=== PATIENT | male | born 1975 | race African-American/Black ===

== ENCOUNTER 2019-04-13 19:49 | Observation (INO) | payer BC ==
[2019-04-13 20:19] LABS: Absolute Lymphocytes (CBC) 2.7 K/uL (0.7-4.9); Absolute Monocytes 0.7 K/uL (0.1-1.3); Absolute Neutrophil 4.2 K/uL (1.8-8.0); Basophils % 1.1 % (0-1.3); Hematocrit 44.7 % (39.6-49.0); Lymphocytes % 34.2 % (15.3-44.8); MPV 8.9 fL (7.6-11.3); Monocytes % 8.7 % (3.3-12.3); Protime INR 1.03; RBC Red Blood Cell Count 4.84 M/uL (4.33-5.43)
[2019-04-13] MEDS ORDERED: METOPROLOL TARTRATE 5 MG/5 ML INJ IV ONE ×2 (20:27→20:47)
[2019-04-13] MEDS ORDERED: NA CHLORIDE 0.9% 1,000 ML ONE (20:27)
[2019-04-13] MEDS ORDERED: ASPIRIN 81 MG CHEWABLE TABLET ONE (20:27)
[2019-04-13 20:36] LABS: ALT/SGPT 28 U/L (12-78); AST/SGOT 21 U/L (15-37); Albumin 3.9 g/dL (3.4-5.0); Alkaline Phosphatase 92 U/L (45-117); BUN Blood Urea Nitrogen 14 mg/dL (7-18); Bicarbonate 26 mmol/L (21-32); Bilirubin Direct 0.1 mg/dL (0-0.2); Bilirubin Total 0.4 mg/dL (0.2-1.0); Glucose Level 112 mg/dL (74-106); Magnesium 2.2 mg/dL (1.8-2.4); NT PRO-BNP 21 pg/mL (<125); Potassium 3.4 mmol/L (3.5-5.1); Sodium Level 140 mmol/L (136-145); Troponin (Emerg Dept Use Only) < 0.02 ng/mL (0.0-0.045)
--- NOTE | 2019-04-13 21:02 | RAD REPORT ---
EXAM DESCRIPTION: RAD - Chest Single View - 04/13/2019 8:34 pm CLINICAL HISTORY: Chest pain COMPARISON: None. TECHNIQUE: AP portable chest image was obtained 2024 . FINDINGS: Lungs are clear. Heart and vasculature are normal. No measurable pleural effusion and no p neumothorax. No acute bony abnormality seen. No acute aortic findings suspected. IMPRESSION: No acute cardiopulmonary process.
[2019-04-13] MEDS ORDERED: POTASSIUM 25 MEQ EFFERV TAB ONE (21:09)
--- NOTE | 2019-04-13 21:10 | ER ---
Nurse's Notes [facility] Name: Monica Larkin Age: 43 yrs Sex: Male : 1975 Arrival Date: 04/13/2019 Time: 19:50 Bed 20 Private MD: Diagnosis: Chest pain, unspecified Presentation: 04/13 19:59 Presenting complaint: Patient states: I was in the car driving to work and got a sharp la1 stabbing 10/10 pain that radiates to my back, I got sweaty and then the pain changed to a pressure like pain and is still there. My left arm is also kind of numb and painful. Transition of care: patient was not received from another setting of care. Onset of symptoms was April 13, 2019. Risk Assessment: Do you want to hurt yourself or someone else? Patient reports no desire to harm self or others. Initial Sepsis Screen: Does the patient meet any 2 criteria? No. Patient's initial sepsis screen is negative. Does the patient have a suspected source of infection? No. Patient's initial sepsis screen is negative. Care prior to arrival: None. 19:59 Method Of Arrival: Ambulatory la1 19:59 Acuity: RUDI 2 la1 Triage Assessment: 19:56 General: Appears in no apparent distress. uncomfortable, Behavior is calm, cooperative, cc3 appropriate for age. Pain: Complains of pain in chest Pain currently is 7 out of 10 on a pain scale. Quality of pain is described as aching, Pain began suddenly. EENT: No signs and/or symptoms were reported regarding the EENT system. Neuro: Level of Consciousness is awake, alert, obeys commands, Oriented to person, place, time, situation, Appropriate for age. Cardiovascular: Reports chest pain, Patient's skin is warm and dry. Respiratory: Airway is patent Respiratory effort is even, unlabored, Respiratory pattern is regular, symmetrical. GI: Abdomen is round non-distended. : No signs and/or symptoms were reported regarding the genitourinary system. Derm: No signs and/or symptoms reported regarding the dermatologic system. Musculoskeletal: Circulation, motion, and sensation intact. Range of motion: intact in all extremities. Historical: - Allergies: 19:58 PENICILLINS; la1 19:58 SHELLFISH; la1 - PMHx: 19:58 None; la1 - Immunization history:: Adult Immunizations up to date. - Social history:: Smoking status: Patient/guardian denies using tobacco. - Ebola Screening: : No symptoms or risks identified at this time. Screenin:56 Abuse screen: Denies threats or abuse. Denies injuries from another. Nutritional cc3 screening: No deficits noted. Tuberculosis screening: No symptoms or risk factors identified. Fall Risk Ambulatory Aid- None/Bed Rest/Nurse Assist (0 pts). Gait- Normal/Bed Rest/Wheelchair (0 pts) Mental Status- Oriented to own ability (0 pts). Assessment: 19:56 Pain: Pain radiates to back. cc3 20:45 Reassessment: Patient appears in no apparent distress at this time. Patient and/or cc3 family updated on plan of care and expected duration. Pain level reassessed. Patient is alert, oriented x 3, equal unlabored respirations, skin warm/dry/pink. BP of 138/88 mmHg and heart rate of 81 bpm with NRS of 2/10 relayed to ADWOA Marsh and she said no need for the third dose of Metoprolol. Patient states feeling better. Patient states symptoms have improved. 21:30 Reassessment: Patient appears in no apparent distress at this time. Patient and/or cc3 family updated on plan of care and expected duration. Pain level reassessed. Patient is alert, oriented x 3, equal unlabored respirations, skin warm/dry/pink. 22:45 Reassessment: Patient appears in no apparent distress at this time. Patient and/or cc3 family updated on plan of care and expected duration. Pain level reassessed. Patient is alert, oriented x 3, equal unlabored respirations, skin warm/dry/pink. Patient is for admission, room available in 406, report called and handed over to NITZA Cox for continuity of care and management. Patient denies pain at this time. Patient states feeling better. Patient states symptoms have improved. 23:00 Reassessment: Patient appears in no apparent distress at this time. Patient and/or cc3 family updated on plan of care and expected duration. Pain level reassessed. Patient is alert, oriented x 3, equal unlabored respirations, skin warm/dry/pink. Patient left ER for admission vitally stable by wheelchair escorted by information technology account managerrachelle Jarquin. Patient denies pain at this time. Patient states feeling better. Patient states symptoms have improved. Vital Signs: 19:58 BP 170 / 105; Pulse 111; Resp 16; Temp 97.3; Pulse Ox 98% on R/A; Weight 86.18 kg; la1 Height 5 ft. 5 in. (165.10 cm); Pain 4/10; 20:15 BP 152 / 91; Pulse 95; Resp 16 S; Temp 97.5(O); Pulse Ox 99% on R/A; cc3 20:25 BP 149 / 97; Pulse 83; Resp 16 S; Temp 97.5(O); Pulse Ox 98% on R/A; Pain 2/10; cc3 20:30 BP 148 / 103; Pulse 83; Resp 16 S; Temp 97.3(O); Pulse Ox 100% on R/A; cc3 20:45 BP 138 / 88; Pulse 81; Resp 16 S; Temp 97.3(O); Pulse Ox 99% on R/A; Pain 2/10; cc3 21:45 BP 140 / 96; Pulse 80; Resp 17 S; Temp 97.3(O); Pulse Ox 100% on R/A; cc3 22:00 BP 128 / 84; Pulse 80; Resp 16 S; Temp 97.5(O); Pulse Ox 99% on R/A; cc3 22:30 BP 134 / 82; Pulse 80; Resp 18 S; Temp 97.3(O); Pulse Ox 99% on R/A; cc3 19:58 Body Mass Index 31.62 (86.18 kg, 165.10 cm) la1 ED Course: 19:50 Patient arrived in ED. am2 19:54 Salma Carnes FNP-C is [facility]. snw 19:54 Edgardo Farah MD is Attending Physician. snw 19:56 Cassia Noriega is Primary Nurse. cc3 19:56 Patient has correct armband on for positive identification. Placed in gown. Bed in low cc3 position. Call light in reach. Side rails up X 1. youth nutritional monitor on. Pulse ox on. NIBP on. 19:56 Patient maintains SpO2 saturation greater than 95% on room air. cc3 19:59 Arm band placed on left wrist. EKG completed in triage. Results shown to . la1 20:00 Triage completed. la1 20:00 Inserted saline lock: 20 gauge in right antecubital area, using aseptic technique. cc3 Blood collected. 20:36 XRAY Chest (1 view) In Process Unspecified. EDMS 21:08 Mark Sanchez MD is Hospitalizing Provider. snw 22:50 No provider procedures requiring assistance completed. Patient admitted, IV remains in cc3 place. Administered Medications: 20:15 Drug: Aspirin Chewable Tablet 324 mg Route: PO; cc3 20:30 Follow up: Response: No adverse reaction; Pain is decreased cc3 20:15 Drug: NS 0.9% 1000 ml Route: IV; Rate: 75 ml/hr; Site: right antecubital; cc3 22:15 Follow up: Response: No adverse reaction; IV Status: Infusion continued upon admission; cc3 IV Intake: 150ml 20:20 Drug: Metoprolol 5 mg Route: IVP; Site: right antecubital; cc3 20:30 Follow up: Response: No adverse reaction; Pain is decreased; Blood pressure is lowered cc3 20:35 Drug: Metoprolol 5 mg Route: IVP; Site: right antecubital; cc3 20:45 Follow up: Response: No adverse reaction; Pain is decreased; Blood pressure is lowered cc3 20:55 Drug: Potassium Effervescent Tablet 50 mEq Route: PO; cc3 21:00 Follow up: Response: No adverse reaction cc3 21:10 Drug: Metoprolol 25 mg Route: PO; cc3 22:00 Follow up: Response: No adverse reaction; Blood pressure is lowered cc3 21:11 Drug: Lovenox 80 mg Route: Sub-Q; Site: right lower abdomen; cc3 21:30 Follow up: Response: No adverse reaction cc3 Intake: 22:15 IV: 150ml; Total: 150ml. cc3 Outcome: 21:10 Decision to Hospitalize by Provider. snw 22:50 Admitted to Tele accompanied by tech, via wheelchair, room 406, with chart, Report cc3 called to NITZA Cox 22:50 Condition: stable 22:50 Instructed on the need for admit, Demonstrated understanding of instructions. 23:02 Patient left the ED. cc3 Signatures: Dispatcher [employer] EDNE Salma Carnes, TERRA COTTA ROOFER HELPER-C TERRA COTTA ROOFER HELPER-Csnw Alonso Sher RN RN la1 Riana Martinez am2 Cassia Noriega cc3 Corrections: (The following items were deleted from the chart) 20:37 20:25 BP 149 / 97; Pulse 83bpm; Resp 16bpm; Spontaneous; Pulse Ox 98% RA; cc3 cc3 22:48 19:56 Pain: Pain does not radiate. cc3 cc3 23:14 20:25 BP 149 / 97; Pulse 83bpm; Resp 16bpm; Spontaneous; Pulse Ox 98% RA; Pain 2/10; cc3cc3 23:14 20:30 BP 148 / 103; Pulse 83bpm; Resp 16bpm; Spontaneous; Pulse Ox 100% RA; cc3 cc3 23:14 20:45 BP 138 / 88; Pulse 81bpm; Resp 16bpm; Spontaneous; Pulse Ox 99% RA; Pain 2/10; cc3cc3
--- NOTE | 2019-04-13 21:11 | EDPHYS ---
Physician Documentation [facility] Name: Monica Larkin Age: 43 yrs Sex: Male : 1975 Arrival Date: 04/13/2019 Time: 19:50 Bed 20 Private MD: ED Physician Edgardo Farah HPI: 04/13 20:44 This 43 yrs old Black Male presents to ER via Ambulatory with complaints of Chest Pain. snw 20:44 The patient or guardian reports chest pain that is located primarily in the substernal snw area. Onset: suddenly, just prior to arrival, today, and improved in ED. The pain radiates to the left arm. Associated signs and symptoms: Pertinent positives: diaphoresis. The chest pain is described as a pressure, sharp. Duration: The patient or guardian reports a single episode, that is still ongoing, but improving. Severity of pain: At its worst the pain was moderate severe in the emergency department the pain has improved mildly. The patient has not experienced similar symptoms in the past. The patient has not recently seen a physician. Historical: - Allergies: 19:58 PENICILLINS; la1 19:58 SHELLFISH; la1 - PMHx: 19:58 None; la1 - Immunization history:: Adult Immunizations up to date. - Social history:: Smoking status: Patient/guardian denies using tobacco. - Ebola Screening: : No symptoms or risks identified at this time. ROS: 20:42 Constitutional: Negative for fever, chills, and weight loss, Eyes: Negative for injury, snw pain, redness, and discharge, ENT: Negative for injury, pain, and discharge, Neck: Negative for injury, pain, and swelling, Respiratory: Negative for shortness of breath, cough, wheezing, and pleuritic chest pain, Abdomen/GI: Negative for abdominal pain, nausea, vomiting, diarrhea, and constipation, Back: Negative for injury and pain, : Negative for injury, bleeding, discharge, and swelling, MS/Extremity: Negative for injury and deformity, Neuro: Negative for headache, weakness, numbness, tingling, and seizure. 20:42 Cardiovascular: Positive for chest pain, of the chest. 20:42 Skin: Positive for diaphoresis. Exam: 20:04 Head/Face: Normocephalic, atraumatic. Eyes: Pupils equal round and reactive to light, snw extra-ocular motions intact. Lids and lashes normal. Conjunctiva and sclera are non-icteric and not injected. Cornea within normal limits. Periorbital areas with no swelling, redness, or edema. ENT: Nares patent. No nasal discharge, no septal abnormalities noted. Tympanic membranes are normal and external auditory canals are clear. Oropharynx with no redness, swelling, or masses, exudates, or evidence of obstruction, uvula midline. Mucous membranes moist. Neck: Trachea midline, no thyromegaly or masses palpated, and no cervical lymphadenopathy. Supple, full range of motion without nuchal rigidity, or vertebral point tenderness. No Meningismus. Chest/axilla: Normal chest wall appearance and motion. Nontender with no deformity. No lesions are appreciated. 20:04 Respiratory: Lungs have equal breath sounds bilaterally, clear to auscultation and percussion. No rales, rhonchi or wheezes noted. No increased work of breathing, no retractions or nasal flaring. Abdomen/GI: Soft, non-tender, with normal bowel sounds. No distension or tympany. No guarding or rebound. No evidence of tenderness throughout. Back: No spinal tenderness. No costovertebral tenderness. Full range of motion. MS/ Extremity: Pulses equal, no cyanosis. Neurovascular intact. Full, normal range of motion. Neuro: Awake and alert, GCS 15, oriented to person, place, time, and situation. Cranial nerves II-XII grossly intact. Motor strength 5/5 in all extremities. Sensory grossly intact. Cerebellar exam normal. Normal gait. Psych: Awake, alert, with orientation to person, place and time. Behavior, mood, and affect are within normal limits. 20:04 Constitutional: The patient appears alert, anxious, diaphoretic, uncomfortable. 20:04 Cardiovascular: Rate: tachycardic, Pulses: no pulse deficits are appreciated, Heart sounds: normal, Edema: is not appreciated, JVD: is not appreciated. 20:04 Skin: Appearance: Moisture: damp. Vital Signs: 19:58 BP 170 / 105; Pulse 111; Resp 16; Temp 97.3; Pulse Ox 98% on R/A; Weight 86.18 kg; la1 Height 5 ft. 5 in. (165.10 cm); Pain 4/10; 20:15 BP 152 / 91; Pulse 95; Resp 16 S; Temp 97.5(O); Pulse Ox 99% on R/A; cc3 20:25 BP 149 / 97; Pulse 83; Resp 16 S; Temp 97.5(O); Pulse Ox 98% on R/A; Pain 2/10; cc3 20:30 BP 148 / 103; Pulse 83; Resp 16 S; Temp 97.3(O); Pulse Ox 100% on R/A; cc3 20:45 BP 138 / 88; Pulse 81; Resp 16 S; Temp 97.3(O); Pulse Ox 99% on R/A; Pain 2/10; cc3 21:45 BP 140 / 96; Pulse 80; Resp 17 S; Temp 97.3(O); Pulse Ox 100% on R/A; cc3 22:00 BP 128 / 84; Pulse 80; Resp 16 S; Temp 97.5(O); Pulse Ox 99% on R/A; cc3 22:30 BP 134 / 82; Pulse 80; Resp 18 S; Temp 97.3(O); Pulse Ox 99% on R/A; cc3 19:58 Body Mass Index 31.62 (86.18 kg, 165.10 cm) la1 MDM: 19:55 Patient medically screened. snw 19:58 ANDRES Risk Score: 1 - Recent [<24hrs] Severe Angina, TOTAL SCORE = 1. Counseling: I had snw a detailed discussion with the patient and/or guardian regarding: the historical points, exam findings, and any diagnostic results supporting the discharge/admit diagnosis, the presence of at least one elevated blood pressure reading (>120/80) during this emergency department visit, lab results, radiology results, the need for further work-up and treatment in the hospital. Physician consultation: Mark Sanchez MD was called at 21:12, was contacted at 21:12, regarding admission, to the telemetry unit. 21:10 ECG:. The patient was given aspirin in the Emergency Department. Data reviewed: vital snw signs, nurses notes, lab test result(s), EKG, radiologic studies. 22:58 ED course: Heart score = History highly suspicious, EKG with ST depression in inferior snw leads, = 4. 05/26 19:59 Order name: Basic Metabolic Panel; Complete Time: 20:48 w 04/13 19:59 Order name: CBC with Diff; Complete Time: 20:34 w 04/13 19:59 Order name: LFT's; Complete Time: 20:48 04/13 19:59 Order name: Magnesium; Complete Time: 20:48 04/13 19:59 Order name: NT PRO-BNP; Complete Time: 20:48 04/13 19:59 Order name: PT-INR; Complete Time: 20:34 04/13 19:59 Order name: Troponin (emerg Dept Use Only); Complete Time: 20:48 w 04/13 19:59 Order name: XRAY Chest (1 view); Complete Time: 21:13 04/13 21:49 Order name: Echo with Doppler [facility] 04/13 21:49 Order name: Lipid Profile [facility] 04/13 21:49 Order name: Lipid Profile [facility] 04/13 21:49 Order name: Troponin I [facility] 04/13 21:49 Order name: Troponin I [facility] 04/13 19:59 Order name: EKG; Complete Time: 20:00 04/13 19:59 Order name: Cardiac monitoring; Complete Time: 20:22 04/13 19:59 Order name: EKG - Nurse/Tech; Complete Time: 20:00 04/13 19:59 Order name: IV Saline Lock; Complete Time: 20:22 04/13 19:59 Order name: Labs collected and sent; Complete Time: 20:22 04/13 19:59 Order name: O2 Per Protocol; Complete Time: 20:22 04/13 19:59 Order name: O2 Sat Monitoring; Complete Time: 20:22 04/13 21:49 Order name: Heart Healthy [facility] 04/13 21:49 Order name: EKG Electrocardiogram [facility] 04/13 21:49 Order name: EKG Electrocardiogram [facility] EC:58 Rate is 93 beats/min. Rhythm is regular, Normal Sinus Rhythm. QRS [place] is Normal. ND snw interval is normal. QRS interval is normal. QT interval is normal. No Q waves. T waves are Normal. Clinical impression: NSR w/ Non-specific ST/T Changes. Administered Medications: 20:15 Drug: Aspirin Chewable Tablet 324 mg Route: PO; cc3 20:30 Follow up: Response: No adverse reaction; Pain is decreased cc3 20:15 Drug: NS 0.9% 1000 ml Route: IV; Rate: 75 ml/hr; Site: right antecubital; cc3 22:15 Follow up: Response: No adverse reaction; IV Status: Infusion continued upon admission; cc3 IV Intake: 150ml 20:20 Drug: Metoprolol 5 mg Route: IVP; Site: right antecubital; cc3 20:30 Follow up: Response: No adverse reaction; Pain is decreased; Blood pressure is lowered cc3 20:35 Drug: Metoprolol 5 mg Route: IVP; Site: right antecubital; cc3 20:45 Follow up: Response: No adverse reaction; Pain is decreased; Blood pressure is lowered cc3 20:55 Drug: Potassium Effervescent Tablet 50 mEq Route: PO; cc3 21:00 Follow up: Response: No adverse reaction cc3 21:10 Drug: Metoprolol 25 mg Route: PO; cc3 22:00 Follow up: Response: No adverse reaction; Blood pressure is lowered cc3 21:11 Drug: Lovenox 80 mg Route: Sub-Q; Site: right lower abdomen; cc3 21:30 Follow up: Response: No adverse reaction cc3 Disposition: 04/14 02:19 Co-signature as Attending Physician, Edgardo Farah MD. Disposition: 04/13/19 21:10 Hospitalization ordered by Mark Sanchez for Observation. Preliminary diagnosis is Chest pain, unspecified. - Bed requested for Telemetry/MedSurg (observation). - Status is Observation. cc3 - Condition is Stable. - Problem is new. - Symptoms have improved. UTI on Admission? No Signatures: Dispatcher [employer] EDMS Salma Carnes, CHICKEN HANGER-C CHICKEN HANGER-Csnw Alonso Sher RN RN la1 Edgardo Farah MD MD Cassia Noriega cc3 Corrections: (The following items were deleted from the chart) 04/13 21:58 21:10 Hospitalization Ordered by Mark Sanchez MD for Observation. Preliminary la1 diagnosis is Chest pain, unspecified. Bed requested for Telemetry/MedSurg (observation). Status is Observation. Condition is Stable. Problem is new. Symptoms have improved. UTI on Admission? No. snw 23:02 21:58 04/13/2019 21:10 Hospitalization Ordered by Mark Sanchez MD for Observation. cc3 Preliminary diagnosis is Chest pain, unspecified. Bed requested for Telemetry/MedSurg (observation). Status is Observation. Condition is Stable. Problem is new. Symptoms have improved. UTI on Admission? No. la1
[2019-04-13] MEDS ORDERED: METOPROLOL TAR 25 MG TAB ONE (21:25)
[2019-04-13] MEDS ORDERED: ENOXAPARIN 80 MG/0.8 ML SQ ONE (21:25)
[2019-04-13] MEDS ORDERED: ACETAMINOPHEN 500 MG TAB PO PRN (21:43)
[2019-04-13] MEDS ORDERED: MORPHINE 4 MG/ML SYR IV PRN (21:43)
[2019-04-13] MEDS ORDERED: ALPRAZOLAM 0.25 MG TABLET PO PRN (21:43)
[2019-04-14 01:32] VITALS: O2SAT 100
[2019-04-14 02:01] VITALS: BMI 29.7
[2019-04-14 06:19] LABS: Potassium 3.8 mmol/L (3.5-5.1)
--- NOTE | 2019-04-14 07:54 | EKG ---
Test Date: 2019-04-13 Test Time: 19:57:37 External Auditor: LA MEASUREMENT RESULTS: Intervals: Rate: 93 MT: 142 QRSD: 94 QT: 334 QTc: 415 [place]: P: 64 MT: 142 QRS: 64 T: 29 INTERPRETIVE STATEMENTS: Normal sinus rhythm ST abnormality, possible digitalis effect Abnormal ECG No previous ECG available for comparison Electronically Signed On 04-14-19 07:53:40 CDT by Elio Martinez
[2019-04-14] MEDS ORDERED: METOPROLOL TAR 50 MG TAB PO SCH ×2 (08:00→09:00)
[2019-04-14] MEDS ORDERED: ASPIRIN EC 81 MG TAB PO SCH (09:00)
--- NOTE | 2019-04-14 09:02 | CON ---
Date of Consultation: 04/14/[address] Sanchez's service on 04/13/2019. Reason For Consultation: Chest pain. History Of Present Illness: Mr. Larkin is a 43-year-old black male without any significant cardiac r isk factors. He denied smoking. Denied family history of heart disease. He does not have diabetes, hypertension, or dyslipidemia. While at work yesterday, developed a sharp stabbing chest pain over the left anterior wall that was radiating to the back. It was pinpoint sharp. No nausea, vomiting, diaphoresis, PND, orthopnea, pedal edema, palpitation, or syncope. The pain would go, would be inter mittent that would last seconds, but was coming back on and off for about an hour. This pain was not exertional. Past Medical History: Negative. Home Medications: None. Review of Systems: Negative. Social History: Negative for tobacco, drugs, or alcohol. Family History: Negative. Allergies: INCLUDE SHELLFISH AND PENICILLIN. Physical Examination: Vital Signs: Stable. He was afebrile. HEENT: Negative. Neck: Supple without any bruit, lymphadenopathy, JVD, or thyromegaly. Chest: Clear to auscultation and percussion. Cardiac: Revealed a regular rhythm and rate without any murmurs, gallops, or rubs. Abdomen: Benign. Extremities: Revealed no clubbing, cyanosis, or edema. Diagnostic Data: EKG was normal. Chest x-ray was normal. CPKs, MBs, troponin, and BNP were normal. Impression And Plan: Atypical chest pain, most likely musculoskeletal. The patient has no cardiac r isk factors for heart disease. He has already ruled out for a myocardial infarction. His EKG, chest x-ray, and enzymes are all normal. Because of his age over 40, and his chest pain, it may not be un reasonable to do an outpatient echocardiogram and a routine stress test and I will make an arrangemen t for that. As far as I am concerned, he can go home today otherwise. KAPIL/TONNY Voice ID: [id number] Report ID: [id number]
[2019-04-14 09:06] VITALS: BP 142/84; TEMP 97
--- NOTE | 2019-04-14 09:47 | P.HP ---
Certification for Inpatient Patient admitted to: Observation With expected LOS: <2 Midnights Patient will require the following post-hospital care: None Practitioner: I am a practitioner with admitting privileges, knowledge of patient current condition, hospital course, and medical plan of care. Services: Services provided to patient in accordance with Admission requirements found in Title 42 Section 412.3 of the Code of Federal Regulations Patient History Date of Service: 04/13/19 Reason for admission: Chest pain rule out acute coronary syndrome History of Present Illness: Patient is a 43-year-old gentleman who was on his way to work yesterday when started having chest pain. Pain was mainly in the sternal region and he became severely diaphoretic. He has some referred pain to his left side. Official also became slightly short of breath. When he came into the ER his blood pressure was significantly elevated. Patient with admitted to the hospital to be ruled out for acute coronary syndrome. Allergies Penicillins Allergy (Verified 04/13/19 23:17) Itching/Hives/Rash shellfish Allergy (Uncoded 04/13/19 23:17) Itching/Hives/Rash Home Medications: Diphenhydramine [Benadryl Tab/Cap] 25 mg PO Q6HP PRN 04/13/19 - Past Medical/Surgical History Has patient received pneumonia vaccine in the past: No Diabetic: No -: none -: none - Family History none in the mother's side History Unknown: Yes - Social History Smoking Status: Current every day smoker Alcohol use: No CD- Drugs: Yes Caffeine use: No Place of Residence: Home Review of Systems 10-point ROS is otherwise unremarkable Physical Examination - Vital Signs Temperature: 97.0 F Blood Pressure: 142/84 Pulse: 80 Respirations: 16 Pulse Ox (%): 100 - Physical Exam General: Alert, In no apparent distress, Oriented x3 HEENT: Atraumatic, PERRLA, Mucous membr. moist/pink, EOMI, Sclerae nonicteric Neck: Supple, 2+ carotid pulse no bruit, No LAD, Without JVD or thyroid abnormality Respiratory: Clear to auscultation bilaterally, Normal air movement Cardiovascular: Regular rate/rhythm, Normal S1 S2, No murmurs Gastrointestinal: Normal bowel sounds, Soft and benign, Non-distended, No tenderness Musculoskeletal: No clubbing, No swelling, No tenderness Integumentary: No rashes Neurological: Normal gait, Normal speech, Normal strength at 5/5 x4 extr, Normal tone, Sensation intact, Cranial nerves 3-12 intact, Normal affect Lymphatics: No axilla or inguinal lymphadenopathy - Studies Laboratory Data (last 24 hrs) 04/13/19 20:00: PT 12.1, INR 1.03 04/13/19 20:00: WBC 7.9, Hgb 15.1, Hct 44.7, Plt Count 290 04/13/19 20:00: Sodium 140, Potassium 3.4 L, BUN 14, Creatinine 1.45 H, Glucose 112 H, Magnesium 2.2, Total Bilirubin 0.4, AST 21, ALT 28, Alkaline Phosphatase 92 Assessment & Plan - Problems (Diagnosis) (1) Chest pain, rule out acute myocardial infarction Current Visit: Yes Status: Acute (2) Hypertension Current Visit: Yes Status: Acute - Plan 1. Serial troponins and EKG 2. Cardiology consultation 3. Echocardiogram and if this is okay patient may be able to go home with outpatient stress test follow-up 4. Anti-platelet therapy, anti coagulation, beta-casey, statin, and O2 as needed 5. IV morphine for pain 6. Nitro p.r.n. 7. Strict blood sugar and blood pressure control 8. Lipid profile 9. GI and DVT prophylaxis Discharge Plan: Home Plan to discharge in: 24 Hours - Advance Directives Does patient have a Living Will: No Does patient have a Durable POA for Healthcare: No - Code Status/Comfort Care Code Status Assessed: Yes Code Status: Full Code Critical Care: No Time Spent Managing PTS Care (In Minutes): 45
--- NOTE | 2019-04-14 15:41 | P.SSS ---
Patient History Date of Service: 04/14/19 Reason for admission: Chest pain rule out acute coronary syndrome History of Present Illness: Patient is a 43-year-old gentleman who was on his way to work yesterday when started having chest pain. Pain was mainly in the sternal region and he became severely diaphoretic. He has some referred pain to his left side. Official also became slightly short of breath. When he came into the ER his blood pressure was significantly elevated. Allergies Penicillins Allergy (Verified 04/13/19 23:17) Itching/Hives/Rash shellfish Allergy (Uncoded 04/13/19 23:17) Itching/Hives/Rash Home Medications: Diphenhydramine [Benadryl*] 25 mg PO Q6HP PRN 04/13/19 - Past Medical/Surgical History Has patient received pneumonia vaccine in the past: No Diabetic: No -: none -: none - Family History none in the mother's side History Unknown: Yes - Social History Smoking Status: Current every day smoker Alcohol use: No CD- Drugs: Yes Caffeine use: No Place of Residence: Home Review of Systems 10-point ROS is otherwise unremarkable Physical Examination - Vital Signs Temperature: 97.0 F Blood Pressure: 142/84 Pulse: 80 Respirations: 16 Pulse Ox (%): 100 - Physical Exam General: Alert, In no apparent distress, Oriented x3 HEENT: Atraumatic, PERRLA, Mucous membr. moist/pink, EOMI, Sclerae nonicteric Neck: Supple, 2+ carotid pulse no bruit, No LAD, Without JVD or thyroid abnormality Respiratory: Clear to auscultation bilaterally, Normal air movement Cardiovascular: Regular rate/rhythm, Normal S1 S2 Gastrointestinal: Normal bowel sounds, No tenderness Musculoskeletal: No tenderness Integumentary: No rashes Neurological: Normal gait, Normal speech, Normal strength at 5/5 x4 extr, Normal tone, Normal affect Lymphatics: No axilla or inguinal lymphadenopathy - Studies Laboratory Data (last 24 hrs) 04/13/19 20:00: PT 12.1, INR 1.03 04/13/19 20:00: WBC 7.9, Hgb 15.1, Hct 44.7, Plt Count 290 04/13/19 20:00: Sodium 140, Potassium 3.4 L, BUN 14, Creatinine 1.45 H, Glucose 112 H, Magnesium 2.2, Total Bilirubin 0.4, AST 21, ALT 28, Alkaline Phosphatase 92 Treatment Summary: Patient with admitted to the hospital to be ruled out for acute coronary syndrome. Cardiology was consulted. Her troponins remained negative x2, she was hemodynamically stable and his labs remained stable. Her heart score was 1 , which he equated to 0.9-1.7% risk of adverse cardiac events. No echocardiogram here was done here as cardiology cleared her for discharge for outpatient workup. She was then discharged in a safe and stable manner. - Disposition Discharge Date: 04/14/19 Disposition: ROUTINE DISCHARGE Condition: GOOD Consultations: Cardiology Patient Discharge Instructions: Please follow up with your primary care physician in 2-3 days. Please follow up with your marketing researcher for further management in his clinic. Please return to the Emergency room with worsening symptoms. Diet: AHA Activity: Ad constantin Time Spent Managing Pts Care (In Minutes): 55
== END 2019-04-14 10:15 | disposition home or self-care (01) ==
LOC: ER 19:49 → ERHOLD 21:43 → 4TH 22:48
PROVIDERS: ADMIT Hospitalist; ATTEND Family Medicine
DX: R07.89 Other chest pain (principal); R94.31 Abnormal electrocardiogram [ECG] [EKG]
CPT/HCPCS: 36415; 71045; 80048; 80061; 80076; 83735; 83880; 84484; 85025; 85610; 93005; 96361; 96372; 96374; 99285; G0378; J1650; J7030